=== PATIENT | male | born 1985 | race Caucasian/White ===

== ENCOUNTER 2022-04-23 16:34 | Emergency (ER) | payer OTHER, SELFPAY ==
[~2022-04-23] VITALS: Ht 182.9 cm; Wt 81.6 kg
[2022-04-23 16:35] VITALS: BP 128/87
[2022-04-23] MEDS ORDERED: ACETAMINOPHEN 500 MG TAB PO ONE (18:50)
== END 2022-04-23 20:18 | disposition left against medical advice (07) ==
LOC: M ED 16:34
DX: S92.311A Displaced fracture of first metatarsal bone, right foot, initial encounter for closed fracture (principal); W18.30XA Fall on same level, unspecified, initial encounter; Y92.009 Unspecified place in unspecified non-institutional (private) residence as the place of occurrence of the external cause; F17.200 Nicotine dependence, unspecified, uncomplicated; Z53.20 Procedure and treatment not carried out because of patient's decision for unspecified reasons

== ENCOUNTER 2022-10-14 14:02 | Emergency (ER) | payer OTHER ==
[~2022-10-14] VITALS: Ht 182.9 cm; Wt 80.1 kg
[2022-10-14] MEDS ORDERED: AMOX875T2 PO (15:04)
[2022-10-14] MEDS ORDERED: KETOROLAC 60MG 2ML VIAL IM ONE (15:05)
[2022-10-14] MEDS ORDERED: KETO10TAB PO (15:05)
[2022-10-14 15:15] VITALS: BP 142/89
== END 2022-10-14 15:19 | disposition home or self-care (01) ==
LOC: M ED 14:02
DX: K02.9 Dental caries, unspecified (principal); K05.10 Chronic gingivitis, plaque induced
CPT/HCPCS: 96372; 99283; J1885

== ENCOUNTER 2024-03-16 17:43 | Emergency (ER) | payer MEDICAID, OTHER, SELFPAY ==
[~2024-03-16 17:43] MED LIST: AMOX875T2 PO; KETO10TAB PO
[2024-03-16 19:04] LABS: BASO # 0.1 10^3/uL (0.0-0.2); BASO % 0.6 % (0.0-1.0); EOS # 0.2 10^3/uL (0.0-0.5); EOS % 1.5 % (0.0-3.0); HEMATOCRIT 41.6 % (42.0-52.0); HEMOGLOBIN 14.1 g/dl (13.5-17.5); LYMPH # 1.8 10^3/uL (1.5-5.0); LYMPH % 13.9 % (24.0-44.0); MEAN CORPUSCULAR HGB CONC 33.9 g/dl (32.0-36.5); MEAN CORPUSCULAR VOLUME 91.4 fl (80.0-96.0); MONO # 1.6 10^3/uL (0.0-0.8); MONO % 12.7 % (2.0-8.0); NEUTROPHILS # 9.1 10^3/uL (1.5-8.5); NEUTROPHILS % 70.7 % (36.0-66.0); PLATELET COUNT, AUTOMATED 333 10^3/uL (150-450); RED BLOOD COUNT 4.55 10^6/uL (4.30-6.10); WHITE BLOOD COUNT 12.9 10^3/uL (4.0-10.0)
[2024-03-16 19:30] LABS: BLOOD UREA NITROGEN 9 MG/DL (9-23); CALCIUM LEVEL 9.2 MG/DL (8.5-10.1); CARBON DIOXIDE LEVEL 34 MMOL/L (20-31); CHLORIDE LEVEL 101 MMOL/L (98-107); CREATININE FOR GFR 0.76 MG/DL (0.70-1.30); GLOMERULAR FILTRATION RATE > 60.0 (>60); GLUCOSE, FASTING 73 MG/DL (60-100); POTASSIUM SERUM 3.5 MMOL/L (3.5-5.1); SODIUM LEVEL 137 MMOL/L (136-145)
[2024-03-16] MEDS: NS 1,000 ML IV SCH (21:03)
[2024-03-16] MEDS: CEFEPIME HCL 2 GM in D5W MINI-BAG PLUS 50 ML IV ONE (21:03)
[2024-03-16] MEDS ORDERED: HOME MED LIST COMPLETE! XX SCH (22:30)
[2024-03-17] MEDS: DALBAVANCIN 1,500 MG in D5W 250 ML IV ONE (01:52)
[2024-03-17 02:44] LABS: ERYTHROCYTE SEDIMENTATION RATE 62 mm/hr (0-15)
[2024-03-17 02:49] VITALS: BP 129/76; TEMP 97.6; O2SAT 100
== END 2024-03-17 02:52 | disposition home or self-care (01) ==
LOC: M ED 17:43
DX: A41.9 Sepsis, unspecified organism (principal); L03.115 Cellulitis of right lower limb
CPT/HCPCS: 80048; 81001; 83605; 85025; 85652; 86140; 87040; 93041; 93971; 94760; 96365; 96366; 96375; 99285; J0692; J0875